=== PATIENT | female | born 1965 | race Caucasian/White ===

== ENCOUNTER 2021-06-18 00:14 | Day surgery (SDC) | payer OTHER, SELFPAY ==
[2021-06-11 14:47] VITALS: BMI 26.6
--- NOTE | 2021-06-18 08:25 | P.PNAN_ITS ---
Anes - Initial Pre Proc Eval Procedure: Operation Date: 06/18/21 10:30 Proposed Procedures p Release Right Ring Trigger Finger - Venkatesh Ennis MD Date/Time: 06/18/21 08:25 Surgeon: Venkatesh Ennis MD Pre Op Diagnosis: trigger finger right finger Patient Data Age: 55 Gender: F Height: 1.63 m Weight: 70.31 kg Allergies Allergy/AdvReac Type Severity Reaction Status Date / Time codeine Allergy Severe Hives Verified 06/18/21 09:20 Home Medications Medication Instructions Recorded Confirmed Type cetirizine 10 mg PO DAILY 06/11/21 06/11/21 History ergocalciferol (vitamin D2) 1,000 unit PO DAILY 06/11/21 06/11/21 History [Vitamin D2] Patient hx anesthesia problems: none Family hx anesthesia problems: none Results Review: All pre-operative results and documents have been reviewed as part of the pre-operative evaluation. [facility] Past Medical History Medical History (Updated 06/18/21 @ 08:26 by Braydon Morgna DO) Chronic bronchitis History of tumor Back (Excised) Mild acid reflux Rheumatoid arthritis Surgical History Surgical History (Updated 06/18/21 @ 08:26 by Braydon Morgan DO) History of arthroscopy of shoulder Rt History of carpal tunnel release History of hysterectomy History of repair of hiatal hernia Family History Family History (System 02/06/21 @ 15:47 by Gilbert Peoples) Unknown Osteoporosis Parkinson disease Other Cerebrovascular accident Family history of arthritis Family history of lupus erythematosus Family history of osteoarthritis Social History Social History (System 02/06/21 @ 15:47 by Gilbert Peoples) Smoking status: Never smoker Alcohol intake: current Drinks per week: 7 Substance use: never Substance use type: does not use Living arrangements: with family Spiritual care concerns: No Anes - Eval Final PreProcedure Day of Procedure 06/18/21 08:25 Patient weight: overweight Heart: regular rate and rhythm Lungs: clear to auscultation and normal air movement Airway: Mallampati scale class II Neurological: alert and oriented Last oral intake: >/= 8 hours ASA classification: II Emergent: no Anesthetic plan: proceed Anesthesia type and monitoring: general GIVS and standard monitoring Results Review: All pre-operative results and documents have been reviewed as part of the pre-operative evaluation. Informed Consent: The patient's anesthetic plan and its attendant risks and benefits were discussed with the patient/family/POA. Questions were solicited and answers provided to the satisfaction of the patient/family/POA.
[2021-06-18 09:13] VITALS: BP 114/90; PULSE 91; RESP 14; TEMP 36.8; O2SAT 99; BMI 28.8
[2021-06-18] MEDS: LACTATED RINGERS 1,000 ML 30 ML IV CONT (09:18)
[2021-06-18] MEDS: ACETAMINOPHEN 500 MG TABLET 1000 MG PO (09:19)
[2021-06-18] MEDS: KETOROLAC 15 MG/ML VIAL (*BKC) IV PUSH (09:19)
--- NOTE | 2021-06-18 10:10 | WPDHPUPDATE1 ---
History and Physical Update Update Date/Time: 06/18/21 10:10 History and Physical has been reviewed, including an updated exam of the patient. There are NO changes in the patient's condition. Risks, benefits, and alternatives have been discussed and questions answered. Patient agrees to proceed with procedure.
[2021-06-18] MEDS: ceFAZolin 2 GM/D5W 50 ML 2 GM/50 ML BAG IVPB (10:21)
[2021-06-18 11:01] VITALS: BP 108/63; PULSE 75; RESP 16; O2SAT 97
[2021-06-18 11:30] VITALS: BP 101/65; PULSE 79; RESP 16; O2SAT 99
[2021-06-18 11:50] VITALS: BP 115/67; PULSE 73; RESP 16; O2SAT 99
[2021-06-18] MEDS: ONDANSETRON HCL ODT 4 MG TABLET PO (11:57)
[2021-06-18] MEDS: SCOPOLAMINE 1.5 MG PATCH TRANSDERM (12:28)
[2021-06-18] MEDS: diphenhydrAMINE HCl CAP 25 MG CAPSULE 50 MG PO (12:29)
--- NOTE | 2021-06-18 12:55 | SUR.PHASEII ---
PATIENT STILL HAS NAUSEA, DRY HEAVES; DR. ARRINGTON NOTIFIED. PT MAY GO HOME PER DR. ARRINGTON.
--- NOTE | 2021-06-18 14:15 | W.PM.PROC2 ---
Procedure Note - Detailed Date of Procedure 06/18/21 Pre-op Diagnosis trigger finger right finger Post-op Diagnosis same Procedure Performed Right ring finger trigger finger release. Surgeon Venkatesh Ennis MD Oil Expeller Operator Vianney Lau PA-C Anesthesia general Description of Procedure Preoperative antibiotics given. General anesthetic administered. The hand was prepped and draped in the usual sterile fashion. The limb was exsanguinated. 3 mL of 1% lidocaine were placed at the proposed incision site. A longitudinal incision was created over the flexor tendon. The A1 lionel was identified and released sharply. Tendon was pulled into the wound to confirm complete release. Mild tendinosis and swelling of the tendon confirmed. The wound was closed with interrupted sutures. Sterile dressing applied. Brought to the recovery room in stable condition. No complications. Estimated Blood Loss -1.0 Drains No Pathology none sent Complications No immediate complications Condition stable Disposition same day
--- NOTE | 2021-06-18 16:17 | PM.HPGS ---
History of Present Illness History of Present Illness Consent: Risks, benefits, and alternatives have been discussed and questions answered. Patient agrees to proceed with procedure. Chief complaint: trigger finger right finger Narrative: Harrison Dumont is a 55 year old female complains of right hand pain and trigger finger for over 6 months. Pain in the right 4th and 5th digit. Pain level is an 8. Complains of locking. Worse with gripping and opening and closing hand. Injections: 01/31 with good, but brief benefit. Works as an preventative maintenance technician History of RA. Examination Pleasant, no distress. Wrist shows mild deformity at the 1st MCP joint. Focal tenderness at the ring finger A1 pully. Palpable nodule. No skin rash or lesions. Radial styloid nontender. Wrist and hand motion normal. Neurovascular status intact. Normal chip separator strength. Light touch sensation normal. Elbow full range of motion. Capillary refill brisk. Radial pulse palpable. [place] test negative. Review of Systems Review of Systems: All systems reviewed & are unremarkable except as noted in HPI and below PMFSH Past Medical History Medical History Chronic bronchitis History of tumor Back (Excised) Mild acid reflux Rheumatoid arthritis Surgical History Surgical History History of arthroscopy of shoulder Rt History of carpal tunnel release History of hysterectomy History of repair of hiatal hernia Family History Family History Unknown Osteoporosis Parkinson disease Other Cerebrovascular accident Family history of arthritis Family history of lupus erythematosus Family history of osteoarthritis Social History Social History Smoking status: Never smoker Alcohol intake: current Drinks per week: 7 Substance use: never Substance use type: does not use Spiritual care concerns: No Meds Home Medications and Allergies Home Medications Medication Instructions Recorded Confirmed Type cetirizine 10 mg PO DAILY 06/11/21 07/01/21 History ergocalciferol (vitamin D2) 1,000 unit PO DAILY 06/11/21 07/01/21 History ondansetron HCl [Zofran] 4 mg PO Q8H PRN #20 tablet 06/18/21 07/01/21 Rx tramadol 50 mg PO Q6H PRN #20 tablet 06/18/21 07/01/21 Rx Allergies Allergy/AdvReac Type Severity Reaction Status Date / Time codeine Allergy Severe Hives Verified 06/18/21 09:20 hydrocodone AdvReac Nausea Verified 06/18/21 12:12 morphine AdvReac Nausea Verified 06/18/21 13:02 Assessment and Plan Assessment and plan (1) Trigger finger, right ring finger: Code(s): M65.341 - Trigger finger, right ring finger Status: Acute Assessment and Plan: Symptomatic trigger finger. History of RA. Works with her hands. Very good, but brief benefit from the injection. We discussed operative and non-operative options in detail. I reviewed the proposed procedure. Risks, benefits, and alternatives discussed. Proceed with right trigger finger release ring finger.
== END 2021-06-18 13:02 | disposition home or self-care (01) ==
PROVIDERS: Visit Provider Orthopaedic Surgery
PROC: (CPT 26055; principal; 2021-06-18 10:30)
DX: M65.341 Trigger finger, right ring finger (principal)
CPT/HCPCS: 26055; A9270; J0690; J1885; J2250; J2270; J7120